=== PATIENT | female | born 1930 | race Two or more races ===

== ENCOUNTER 2018-05-23 13:26 | Observation (INO) | payer MEDICARE, BC ==
[2018-05-23] MEDS ORDERED: ONDANSETRON 4 MG/2 ML VIAL IVP STA (14:51)
[2018-05-23] MEDS ORDERED: MORPHINE SULFATE 2 MG/ML SYRINGE IVP STA (14:51)
[2018-05-23] MEDS ORDERED: SODIUM CHLORIDE 0.9% 500 ML 500 ML IV ONE (14:51)
[2018-05-23 15:27] LABS: Amorphous Sediment,Urine Rare /hpf; Appearance,Urine Cloudy (Clear); Bacteria,Urine Occasional /hpf; Bilirubin,Urine Negative (Negative); Blood,Urine Negative (Negative); Color,Urine Light Yellow; Glucose,Urine (UA) Negative (Negative); Ketones,Urine Negative (Negative); Leukocyte Esterase,Urine Negative (Negative); Mucus,Urine Rare /hpf; Nitrite,Urine Positive (Negative); PH, Urine 7.5 (5.0-8.0); Protein,Urine 1+ (Negative); Specific Gravity,Urine 1.011 (1.001-1.035); Squamous Epithelial Cell,Urine <1 /hpf (0-4); Urobilinogen,Urine <2.0 mg/dL (<2.0); WBC,Urine 13 /hpf (0-5)
[2018-05-23 15:31] LABS: Basophils % (A) 0 %; Eosinophils # (A) 0.2 k/uL (0-0.7); Eosinophils % (A) 3 %; HCT 40.3 % (34.0-46.0); HGB 12.4 gm/dL (11.4-16.0); INR 0.9 (<1.2); Lymphocytes # (A) 1.5 k/uL (1.0-4.8); Lymphocytes % (A) 20 %; MCH 28.6 pg (25.0-35.0); MCHC 30.9 g/dL (31.0-37.0); MCV 92.5 fL (80.0-100.0); Mean Platelet Volume 7.7; Monocytes # (A) 0.6 k/uL (0-1.0); Monocytes % (A) 8 %; Neutrophils # (A) 4.7 k/uL (1.3-7.7); Neutrophils % (A) 65 %; Partial Thromboplastin Time 23.1 sec (22.0-30.0); Platelet Count 223 k/uL (150-450); Prothrombin Time 10.1 sec (9.0-12.0); RBC 4.35 m/uL (3.80-5.40); RDW 13.5 % (11.5-15.5); WBC 7.2 k/uL (3.8-10.6)
[2018-05-23 15:32] LABS: ALT 21 U/L (9-52); AST 22 U/L (14-36); Albumin 3.9 g/dL (3.5-5.0); Alkaline Phosphatase 72 U/L (38-126); Anion Gap 7 mmol/L; Blood Urea Nitrogen 18 mg/dL (7-17); Calcium 9.6 mg/dL (8.4-10.2); Carbon Dioxide 28 mmol/L (22-30); Chloride 102 mmol/L (98-107); Glucose 99 mg/dL (74-99); Potassium 4.1 mmol/L (3.5-5.1); Sodium 137 mmol/L (137-145); Total Bilirubin 0.3 mg/dL (0.2-1.3); Total Protein 6.8 g/dL (6.3-8.2)
--- NOTE | 2018-05-23 15:46 | ED ---
General Adult HPI - General Chief complaint: Back Pain/Injury Stated complaint: Flank pain Time Seen by Provider: 05/23/18 14:17 Source: patient Mode of arrival: ambulatory Limitations: no limitations - History of Present Illness Initial comments: 88-year-old female patient presents to the emergency department today for evaluation of left flank pain. Patient states she has had the pain on and off for the last month. Over the last week the pain has worsened. Patient is visiting here from [place] and arrived a couple of days ago. Patient denies any shortness of breath with this. States she does have a chronic cough related to smoking cigarettes. She states that she is having some dysuria but denies any hematuria, urinary frequency, urinary urgency. She denies any fevers or chills with this. Patient denies any injury to the ribs or falls. Patient denies any recent rash, shortness breath, chest pain, abdominal pain, nausea, vomiting, diarrhea, constipation, numbness, tingling, dizziness, weakness, headache, visual changes, or any other complaints. - Related Data Home Medications Medication Instructions Recorded Confirmed Acetaminophen [Tylenol] 650 mg PO Q4H PRN 05/23/18 05/23/18 Aspirin [Adult Low Dose Aspirin EC] 81 mg PO QAM 05/23/18 05/23/18 Losartan Potassium 100 mg PO HS 05/23/18 05/23/18 Metoprolol Tartrate [Lopressor] 50 mg PO DAILY 05/23/18 05/23/18 Multivitamins, Thera [Multivitamin 1 tab PO QAM 05/23/18 05/23/18 (formulary)] Allergies Allergy/AdvReac Type Severity Reaction Status Date / Time No Known Allergies Allergy Verified 05/23/18 14:18 Review of Systems ROS Statement: Those systems with pertinent positive or pertinent negative responses have been documented in the HPI. ROS Other: All systems not noted in ROS Statement are negative. Past Medical History Past Medical History: CVA/TIA, Hypertension Additional Past Medical History / Comment(s): carotid athersclerosis History of Any Multi-Drug Resistant Organisms: None Reported Past Surgical History: No Surgical Hx Reported Past Psychological History: No Psychological Hx Reported Smoking Status: Current every day smoker Past Alcohol Use History: None Reported Past Drug Use History: None Reported - Past Family History Sister(s) Family Medical History: Cancer General Exam Limitations: no limitations General appearance: alert, in no apparent distress, other (This is a well- developed, well-nourished elderly female patient in mild distress related to pain. Vital signs upon presentation are temperature 98.2F, pulse 80, respirations 18, blood pressure 206/112, pulse ox 97% on room air.) Eye exam: Present: normal appearance, PERRL, EOMI. Absent: scleral icterus, conjunctival injection, periorbital swelling ENT exam: Present: normal exam, normal oropharynx, mucous membranes moist Respiratory exam: Present: normal lung sounds bilaterally. Absent: respiratory distress, wheezes, rales, rhonchi, stridor Cardiovascular Exam: Present: regular rate, normal rhythm, normal heart sounds. Absent: systolic murmur, diastolic murmur, rubs, gallop, clicks GI/Abdominal exam: Present: soft, normal bowel sounds. Absent: distended, tenderness, guarding, rebound, rigid Neurological exam: Present: alert, oriented X3, CN II-XII intact Psychiatric exam: Present: normal affect, normal mood Skin exam: Present: warm, dry, intact, normal color. Absent: rash Course Vital Signs 05/23/18 05/23/18 05/23/18 13:46 16:06 17:43 Temperature 98.2 F 97.8 F Pulse Rate 80 79 83 Respiratory 18 18 20 Rate Blood Pressure 206/112 179/95 182/68 O2 Sat by Pulse 97 95 99 Oximetry EKG Findings - EKG Comments: EKG Findings:: EKG obtained at 1516 shows normal sinus rhythm with ventricular rate of 71, OH interval 146, QRS duration 72, QT 414, QTC 449. No evidence of ST elevation or depression. Medical Decision Making - Medical Decision Making 88-year-old female patient presented to the emergency department today for evaluation of left sided upper back pain, near the left flank. Patient reported symptoms for the last month however worsening over the last week. Physical examination was relatively unremarkable. Pain was not reproducible with palpation. Lungs are clear to auscultation with good air movement. Abdomen soft and nontender. Patient did have urinalysis positive for urinary tract infection. She was given dose of Rocephin here in the emergency department. Given severity of patient's pain felt it prudent to perform CT abdomen and pelvis to rule out further etiology, there was evidence of small pericardial effusion. Given patient's location of pain there is a possibility this could be related however is unlikely. We will admit patient for echocardiogram and consultation with cardiology. Did discuss findings, results , and plan with patient and the family, they are agreeable. - Lab Data Result diagrams: 05/23/18 14:55 05/23/18 14:55 Lab Results 05/23/18 05/23/18 05/23/18 Range/Units 14:53 14:55 14:55 WBC 7.2 (3.8-10.6) k/uL RBC 4.35 (3.80-5.40) m/uL Hgb 12.4 (11.4-16.0) gm/dL Hct 40.3 (34.0-46.0) % MCV 92.5 (80.0-100.0) fL MCH 28.6 (25.0-35.0) pg MCHC 30.9 L (31.0-37.0) g/dL RDW 13.5 (11.5-15.5) % Plt Count 223 (150-450) k/uL Neutrophils % 65 % Lymphocytes % 20 % Monocytes % 8 % Eosinophils % 3 % Basophils % 0 % Neutrophils # 4.7 (1.3-7.7) k/uL Lymphocytes # 1.5 (1.0-4.8) k/uL Monocytes # 0.6 (0-1.0) k/uL Eosinophils # 0.2 (0-0.7) k/uL Basophils # 0.0 (0-0.2) k/uL PT (9.0-12.0) sec INR (<1.2) APTT (22.0-30.0) sec Sodium 137 (137-145) mmol/L Potassium 4.1 (3.5-5.1) mmol/L Chloride 102 (98-107) mmol/L Carbon Dioxide 28 (22-30) mmol/L Anion Gap 7 mmol/L BUN 18 H (7-17) mg/dL Creatinine 0.60 (0.52-1.04) mg/dL Est GFR (CKD-EPI)AfAm >90 (>60 ml/min/1.73 sqM) Est GFR (CKD-EPI)NonAf 83 (>60 ml/min/1.73 sqM) Glucose 99 (74-99) mg/dL Calcium 9.6 (8.4-10.2) mg/dL Total Bilirubin 0.3 (0.2-1.3) mg/dL AST 22 (14-36) U/L ALT 21 (9-52) U/L Alkaline Phosphatase 72 (38-126) U/L Troponin I (0.000-0.034) ng/mL Total Protein 6.8 (6.3-8.2) g/dL Albumin 3.9 (3.5-5.0) g/dL Urine Color Light Yellow Urine Appearance Cloudy H (Clear) Urine pH 7.5 (5.0-8.0) Ur Specific Nelson 1.011 (1.001-1.035) Urine Protein 1+ H (Negative) Urine Glucose (UA) Negative (Negative) Urine Ketones Negative (Negative) Urine Blood Negative (Negative) Urine Nitrite Positive H (Negative) Urine Bilirubin Negative (Negative) Urine Urobilinogen <2.0 (<2.0) mg/dL Ur Leukocyte Esterase Negative (Negative) Urine WBC 13 H (0-5) /hpf Ur Squamous Epith Cells <1 (0-4) /hpf Amorphous Sediment Rare H (None) /hpf Urine Bacteria Occasional H (None) /hpf Urine Mucus Rare H (None) /hpf 05/23/18 05/23/18 Range/Units 14:55 14:55 WBC (3.8-10.6) k/uL RBC (3.80-5.40) m/uL Hgb (11.4-16.0) gm/dL Hct (34.0-46.0) % MCV (80.0-100.0) fL MCH (25.0-35.0) pg MCHC (31.0-37.0) g/dL RDW (11.5-15.5) % Plt Count (150-450) k/uL Neutrophils % % Lymphocytes % % Monocytes % % Eosinophils % % Basophils % % Neutrophils # (1.3-7.7) k/uL Lymphocytes # (1.0-4.8) k/uL Monocytes # (0-1.0) k/uL Eosinophils # (0-0.7) k/uL Basophils # (0-0.2) k/uL PT 10.1 (9.0-12.0) sec INR 0.9 (<1.2) APTT 23.1 (22.0-30.0) sec Sodium (137-145) mmol/L Potassium (3.5-5.1) mmol/L Chloride (98-107) mmol/L Carbon Dioxide (22-30) mmol/L Anion Gap mmol/L BUN (7-17) mg/dL Creatinine (0.52-1.04) mg/dL Est GFR (CKD-EPI)AfAm (>60 ml/min/1.73 sqM) Est GFR (CKD-EPI)NonAf (>60 ml/min/1.73 sqM) Glucose (74-99) mg/dL Calcium (8.4-10.2) mg/dL Total Bilirubin (0.2-1.3) mg/dL AST (14-36) U/L ALT (9-52) U/L Alkaline Phosphatase (38-126) U/L Troponin I <0.012 (0.000-0.034) ng/mL Total Protein (6.3-8.2) g/dL Albumin (3.5-5.0) g/dL Urine Color Urine Appearance (Clear) Urine pH (5.0-8.0) Ur Specific Nelson (1.001-1.035) Urine Protein (Negative) Urine Glucose (UA) (Negative) Urine Ketones (Negative) Urine Blood (Negative) Urine Nitrite (Negative) Urine Bilirubin (Negative) Urine Urobilinogen (<2.0) mg/dL Ur Leukocyte Esterase (Negative) Urine WBC (0-5) /hpf Ur Squamous Epith Cells (0-4) /hpf Amorphous Sediment (None) /hpf Urine Bacteria (None) /hpf Urine Mucus (None) /hpf - Radiology Data Radiology results: report reviewed, image reviewed Two-view x-ray of the chest is obtained. Report was reviewed in its entirety. Impression by Dr. Padron shows no active cardiopulmonary disease. Mild pulmonary fibrosis Two-view x-ray of the left ribs are obtained. Report was reviewed in its entirety. Impression by Dr. Padron shows negative left rib exam. No fracture seen. CT abdomen and pelvis with contrast was obtained. Report was reviewed in its entirety. Impression by Dr. Padron shows extensive colonic diverticulosis without diverticulitis. Atherosclerotic vascular disease. Mild dilation of the pancreatic duct in the common bile duct. No obstructing mass seen. Clinical significance is not clear. Also noted was a small pericardial effusion. Disposition Clinical Impression: Pericardial effusion Disposition: ADMITTED IP TO THIS HOSP Condition: Serious Decision to Admit Reason: Admit from EC Decision Date: 05/23/18 Decision Time: 17:34
--- NOTE | 2018-05-23 16:22 | XR ---
EXAMINATION TYPE: XR chest 2V DATE OF EXAM: 05/23/2018 COMPARISON: NONE HISTORY: Left-sided rib pain TECHNIQUE: Frontal and lateral views of the chest are obtained. FINDINGS: Heart is slightly enlarged. There is no heart failure. There is slight coarsening of inter stitial markings. There is no pleural effusion. There is spurring in the thoracic spine. Thoracic aor ta is atheromatous. IMPRESSION: No active cardiopulmonary disease. Mild pulmonary fibrosis.
--- NOTE | 2018-05-23 16:23 | XR ---
EXAMINATION TYPE: XR ribs LT DATE OF EXAM: 05/23/2018 COMPARISON: NONE HISTORY: Left flank pain. Cough. TECHNIQUE: 2 views FINDINGS: I see no pleural effusion or pneumothorax. Left lung is clear of infiltrate. There is osteo penia. I see no rib fracture. IMPRESSION: Negative left rib exam. No fracture seen.
--- NOTE | 2018-05-23 17:01 | CT ---
EXAMINATION TYPE: CT abdomen pelvis w con DATE OF EXAM: 05/23/2018 COMPARISON: None HISTORY: Chest pain CT DLP: mGycm Automated exposure control for dose reduction was used. TECHNIQUE: Helical acquisition of images was performed from the lung bases through the pelvis. CONTRAST: The contrast was Isovue 90 mL. FINDINGS: Lung bases are clear of consolidation. There is no pleural effusion. There is calcified splenic granu fouzia. There is small pericardial effusion. Stomach appears normal. Gallbladder appears normal. There is slight prominence of the bile ducts. The common bile duct measures 9 mm. There is no pancreatic ma ss. There is mild ectasia of the distal pancreatic duct that measures 6.5 mm. There is no adrenal mass. Kidneys show satisfactory contrast opacification. There is no hydronephrosi s. Ureters are not dilated. There is no retroperitoneal adenopathy. Abdominal aorta is atheromatous. Bladder distends smoothly. There is no free fluid in the pelvis. There are multiple sigmoid diverticu la. There are multiple diverticula in the descending colon. There is no inguinal hernia. There is no mesenteric edema or adenopathy. IMPRESSION: EXTENSIVE COLONIC DIVERTICULOSIS WITHOUT DIVERTICULITIS. ATHEROSCLEROTIC VASCULAR DISEASE. MILD DILATION OF THE PANCREATIC DUCT AND THE COMMON BILE DUCT. NO OBSTRUCTING MASS SEEN. THE CLINICAL SIGNIFICANCE IS NOT CLEAR.
[2018-05-23] MEDS ORDERED: NALOXONE 0.4 MG/ML 1 ML VIAL IV PRN (17:30)
[2018-05-23] MEDS ORDERED: ONDANSETRON 4 MG/2 ML VIAL IVP PRN (17:30)
[2018-05-23] MEDS ORDERED: MORPHINE SULFATE 2 MG/ML SYRINGE IV PRN (17:30)
[2018-05-23] MEDS ORDERED: ACETAMINOPHEN TAB 325 MG TAB PO PRN (18:47)
[2018-05-23] MEDS ORDERED: LOSARTAN 50 MG TAB PO SCH (21:00)
--- NOTE | 2018-05-23 23:13 | HP ---
HISTORY AND PHYSICAL DATE OF SERVICE: 05/23/2018. CHIEF COMPLAINT: Left lateral chest pain for "months." HISTORY OF PRESENT ILLNESS: This is the first admission for this 88-year-old white female. She has been having left-sided rib or chest pain for several months. She has had no fever, chills, history of trauma, hemoptysis, sputum production, shortness of breath, etc. She came to the emergency room where a full workup was obtained and no abnormality was seen except for a pericardial effusion. She had no rib fracture. The reasons for having pericardial effusion are obscure. She is healthy otherwise. REVIEW OF SYSTEMS: She has had no CVAs, neurologic problems, difficulty with vision or hearing, heart disease, palpitations, murmurs, rheumatic fever, myocardial infarctions, angina, etc. Her medications suggest that she may have had cardiac problems and/or hypertension. She has had no abdominal pain, nausea, vomiting, food intolerance, melena, hematochezia, hematemesis, jaundice, hepatitis, cirrhosis, hematuria, frequency, urgency, arthralgias, diabetes, etc. PAST MEDICAL HISTORY, FAMILY HISTORY, PERSONAL, SOCIAL HISTORY: Otherwise unremarkable. She has had 2 pregnancies and 2 children. She is not allergic to any medication and she denies surgery. She states she is not on any medication, but she is on Tylenol, aspirin, losartan, metoprolol, and vitamin. Family history, personal history, social histories are otherwise unremarkable and noncontributory. She does smoke a pack of cigarettes a day. PHYSICAL EXAMINATION: Blood pressure is 206/112 with a pulse of 86, she is afebrile. In general, she appeared to be slender, well developed, well preserved for age. Skin color is normal skin is warm, dry. Lymph nodes not enlarged. Head, ears, eyes, nose, mouth, and throat were normal. Neck veins not distended. Thyroid is not enlarged. Carotids normal. Chest is clear. Cardiac exam demonstrates what sounds like sinus rhythm with no murmurs or extra sounds. Abdomen is soft, flat, nontender. No masses or visceromegaly. Bowel sounds are present. Extremities are normal. Neurologically she is intact. DIAGNOSES: 1. Left lateral chest wall pain for several months, etiology unknown. 2. Possible pericardial effusion. 3. Hypertension. PLAN: 1. Bedrest. 2. IV fluids. 3. Echocardiogram. 4. Cardiology consult. MMODL / IJN: [id number] /
[2018-05-24 08:27] VITALS: RESP 18; TEMP 97
[2018-05-24] MEDS ORDERED: ASPIRIN 81 MG PO SCH (09:00)
[2018-05-24] MEDS ORDERED: METOPROLOL TARTRATE 50 MG TAB PO SCH (09:00)
[2018-05-24] MEDS ORDERED: MULTIVITAMINS, THERA 1 EACH TAB PO SCH (09:00)
--- NOTE | 2018-05-24 11:53 | ECHOF ---
Referral Reason:Pericardial effusion MEASUREMENTS -------- HEIGHT: 147.3 cm WEIGHT: 44.9 kg BP: 161/71 IVSd: 1.2 cm (0.6 - 1.1) LVIDd: 4.0 cm (3.9 - 5.3) LVPWd: 1.1 cm (0.6 - 1.1) EDV(Teich): 70 ml IVSs: 1.6 cm LVIDs: 2.8 cm LVPWs: 1.7 cm %IVS Thck: 27 % ESV(Teich): 30 ml EF(Teich): 58 % %FS: 30 % SV(Teich): 40 ml LA Diam: 3.1 cm (2.7 - 3.8) RVIDd: 2.5 cm (< 3.3) LALs A4C: 4.9 cm LAAs A4C: 15.9 cm LAESV A-L A4C: 44 ml LAESV MOD A4C: 42 ml LALs A2C: 5.2 cm LAAs A2C: 13.3 cm LAESV A-L A2C: 29 ml LAESV MOD A2C: 28 ml LAESV(A-L): 37 ml LAESV Index (A-L): 27.20 ml/m Ao Diam: 3.2 cm (2.0 - 3.7) AV Cusp: 1.8 cm (1.5 - 2.6) EPSS: 0.6 cm MV E Josef: 1.20 m/s MV DecT: 219 ms MV Dec Broome: 5.5 m/s MV A Josef: 1.35 m/s MV E/A Ratio: 0.89 MV PHT: 63 ms AV Vmax: 1.57 m/s AV maxP.86 mmHg TR Vmax: 3.07 m/s TR maxP.65 mmHg RAP: 5.00 mmHg RVSP: 42.65 mmHg MV EF SLOPE: 57.60 mm/s (70 - 150) MV EXCURSION: 14.58 mm (> 18.000) FINDINGS -------- Sinus rhythm. This was a technically good study. The left ventricular size is normal. There is borderline concentric left ventricular hypertrophy. Overall left ventricular systolic function is normal with, an EF between 60 - 65 %. The right ventricle is normal in size. Normal LA size by volume 22+/-6 ml/m2. The right atrium is normal in size. There is mild aortic valve sclerosis. The mitral valve leaflets are mildly thickened. Mild mitral annular calcification present. Mild m itral regurgitation is present. Mild tricuspid regurgitation present. There is mild pulmonary hypertension. The right ventricular systolic pressure, as measured by Doppler, is 42.65mmHg. Trace/mild (physiologic) pulmonic regurgitation. The aortic root size is normal. Normal inferior vena cava with normal inspiratory collapse consistent with estimated right atrial pre ssure of 5 mmHg. There is a trivial pericardial effusion present. CONCLUSIONS -------- 1. Sinus rhythm. 2. This was a technically good study. 3. The left ventricular size is normal. 4. There is borderline concentric left ventricular hypertrophy. 5. Overall left ventricular systolic function is normal with, an EF between 60 - 65 %. 6. The right ventricle is normal in size. 7. Normal LA size by volume 22+/-6 ml/m2. 8. The right atrium is normal in size. 9. There is mild aortic valve sclerosis. 10. The mitral valve leaflets are mildly thickened. 11. Mild mitral annular calcification present. 12. Mild mitral regurgitation is present. 13. Mild tricuspid regurgitation present. 14. There is mild pulmonary hypertension. 15. The right ventricular systolic pressure, as measured by Doppler, is 42.65mmHg. 16. Trace/mild (physiologic) pulmonic regurgitation. 17. The aortic root size is normal. 18. Normal inferior vena cava with normal inspiratory collapse consistent with estimated right atrial pressure of 5 mmHg. 19. There is a trivial pericardial effusion present. SENIOR ASIC ENGINEER: Elvira Layne RDCS
--- NOTE | 2018-05-24 12:01 | P.CRDCN ---
History of Present Illness Consult date: 05/24/18 History of present illness: This is a 88-year-old female who came to the hospital with complaints of back pain mostly on the left side in the lower rib cage near the axilla. It's very is circumscribed and intermittent in nature. Sometimes aggravated by deep breathing and movements of the chest. It lasts several minutes and then subsides. Denies any nausea, vomiting or shortness of breath. Patient is a smoker and has some chronic wheezing. Rib x-rays did not reveal any fractures. Chest x-ray did not reveal any acute pathology. Computed tomography scan was suggestive of possible pericardial effusion. Patient is admitted here for further evaluation to make sure that these pains are not related to any pericardial issues. Echocardiogram showed trivial effusion. Otherwise LV function appears to be normal. Her chest pains appear to be noncardiac and muscular skeletal. [facility] Follow-up with primary care physician. Review of Systems As per the chart Past Medical History Past Medical History: CVA/TIA, Hypertension Additional Past Medical History / Comment(s): carotid athersclerosis History of Any Multi-Drug Resistant Organisms: None Reported Past Surgical History: No Surgical Hx Reported Past Anesthesia/Blood Transfusion Reactions: No Reported Reaction Past Psychological History: No Psychological Hx Reported Smoking Status: Current every day smoker Past Alcohol Use History: None Reported Past Drug Use History: None Reported - Past Family History Sister(s) Family Medical History: Cancer Medications and Allergies Home Medications Medication Instructions Recorded Confirmed Type Acetaminophen [Tylenol] 650 mg PO Q4H PRN 05/23/18 05/23/18 History Aspirin [Adult Low Dose Aspirin EC] 81 mg PO QAM 05/23/18 05/23/18 History Losartan Potassium 100 mg PO HS 05/23/18 05/23/18 History Metoprolol Tartrate [Lopressor] 50 mg PO DAILY 05/23/18 05/23/18 History Multivitamins, Thera [Multivitamin 1 tab PO QAM 05/23/18 05/23/18 History (formulary)] Allergies Allergy/AdvReac Type Severity Reaction Status Date / Time No Known Allergies Allergy Verified 05/23/18 14:18 Physical Exam Vitals: Vital Signs Temp Pulse Pulse Resp BP BP Pulse Ox 05/24/18 08:27 70 18 05/24/18 08:26 97.0 F L 70 18 147/60 95 05/24/18 04:00 97.6 F 78 20 161/71 94 L 05/24/18 00:00 97.2 F L 77 18 146/77 92 L 05/23/18 20:00 97.3 F L 81 18 185/102 92 L 05/23/18 19:11 97.9 F 75 20 146/77 93 L 05/23/18 17:43 97.8 F 83 20 182/68 99 05/23/18 16:06 79 18 179/95 95 05/23/18 13:46 98.2 F 80 18 206/112 97 Intake and Output 05/23/18 05/24/18 05/24/18 22:59 06:59 14:59 Intake Total 240 Balance 240 Intake: Oral 240 Other: Voiding Method Toilet Toilet Toilet Incontinent Incontinent # Voids 2 1 Weight 45 kg GENERAL EXAM: Patient is alert and oriented and doesn't appear to be in any acute distress HEENT: Normocephalic. Normal reaction of pupils, equal size, normal range of extraocular motion. No erythema or exudates in the throat. NECK: No masses, no nuchal rigidity. CHEST: No chest wall deformity. LUNGS: Expiratory wheezes HEART: S1 and S2 normal with no audible mumurs or gallops. Regular rhythm, femorals equal on both sides.. ABDOMEN: No hepatosplenomegaly, normal bowel sounds, no guarding or rigidity. SKIN: No rashes CENTRAL NERVOUS SYSTEM: No focal deficits. EXTREMITIES: No cyanosis, clubbing or edema. Results 05/23/18 14:55 05/23/18 14:55 Cardiac Enzymes 05/23/18 05/23/18 Range/Units 14:55 14:55 AST 22 (14-36) U/L Troponin I <0.012 (0.000-0.034) ng/mL Coagulation 05/23/18 Range/Units 14:55 PT 10.1 (9.0-12.0) sec APTT 23.1 (22.0-30.0) sec CBC 05/23/18 Range/Units 14:55 WBC 7.2 (3.8-10.6) k/uL RBC 4.35 (3.80-5.40) m/uL Hgb 12.4 (11.4-16.0) gm/dL Hct 40.3 (34.0-46.0) % Plt Count 223 (150-450) k/uL Comprehensive Metabolic Panel 05/23/18 Range/Units 14:55 Sodium 137 (137-145) mmol/L Potassium 4.1 (3.5-5.1) mmol/L Chloride 102 (98-107) mmol/L Carbon Dioxide 28 (22-30) mmol/L BUN 18 H (7-17) mg/dL Creatinine 0.60 (0.52-1.04) mg/dL Glucose 99 (74-99) mg/dL Calcium 9.6 (8.4-10.2) mg/dL AST 22 (14-36) U/L ALT 21 (9-52) U/L Alkaline Phosphatase 72 (38-126) U/L Total Protein 6.8 (6.3-8.2) g/dL Albumin 3.9 (3.5-5.0) g/dL Current Medications Generic Name Dose Route Start Last Admin Trade Name Freq PRN Reason Stop Dose Admin Acetaminophen 650 mg 05/23/18 18:47 05/24/18 04:15 Tylenol Tab PO 650 mg Q4H PRN Administration Pain Aspirin 81 mg 05/24/18 09:00 05/24/18 08:21 Aspirin PO 81 mg QAM REAGAN Administration Ceftriaxone Sodium 1,000 mg/ 50 mls @ 100 mls/hr 05/24/18 09:00 05/24/18 08: 22 Sodium Chloride IVPB 100 mls/hr Q24HR REAGAN Administration Losartan Potassium 100 mg 05/23/18 21:00 05/23/18 22:19 Cozaar PO 100 mg HS REAGAN Administration Metoprolol Tartrate 50 mg 05/24/18 09:00 05/24/18 08:21 Lopressor PO 50 mg DAILY REAGAN Administration Morphine Sulfate 2 mg 05/23/18 17:30 Morphine Sulfate (Inj) IV Q4HR PRN Severe Pain Multivitamins 1 each 05/24/18 09:00 05/24/18 08:21 Theragran PO 1 each QAM REAGAN Administration Naloxone HCl 0.2 mg 05/23/18 17:30 Narcan IV Q2M PRN Opioid Reversal Ondansetron HCl 4 mg 05/23/18 17:30 Zofran IVP Q8HR PRN Nausea And Vomiting Intake and Output 05/23/18 05/24/18 05/24/18 22:59 06:59 14:59 Intake Total 240 Balance 240 Intake: Oral 240 Other: Voiding Method Toilet Toilet Toilet Incontinent Incontinent # Voids 2 1 Weight 45 kg 05/23/18 14:55 05/23/18 14:55 Assessment and Plan (1) Back pain Current Visit: Yes Status: Acute Code(s): M54.9 - DORSALGIA, UNSPECIFIED SNOMED Code(s): 628300054 (2) COPD (chronic obstructive pulmonary disease) Current Visit: Yes Status: Acute Code(s): J44.9 - CHRONIC OBSTRUCTIVE PULMONARY DISEASE, UNSPECIFIED SNOMED Code(s): 51474800 Plan: Her back pain appears to be very localized and on cardiac in nature. Echocardiogram showed only trivial pericardial effusion. LV function is preserved. Patient to have EKG. If that is normal patient could be discharged home
[2018-05-24 12:03] VITALS: BP 158/84; PULSE 78
[2018-05-24] MEDS ORDERED: SULFAMETHOX-TMP 800-160MG 1 EACH TAB PO SCH (21:00)
--- NOTE | 2018-05-25 08:30 | DS ---
DISCHARGE SUMMARY CHIEF COMPLAINT: Possible pericardial effusion. HISTORY OF PRESENT ILLNESS AND PHYSICAL EXAM: Details of this lady's history and physical can be found in the initial workup. LABORATORY STUDIES: While she was in a hospital she had laboratory studies, details of which can be found in the laboratory section of her chart. COURSE IN HOSPITAL: After admission she was placed on bedrest, started his fluids and monitored closely for any cardiac signs or symptoms. She was seen by Cardiology and echocardiogram was done and demonstrated essentially no pericardial effusion. She is asymptomatic and felt that she could go home. She will go home on her usual activity and diet and medication and follow up in the office. FINAL DIAGNOSES: 1. Possible minimal pericardial effusion. 2. Hypertension. OPERATIONS: None. CONSULTATION: Cardiology. She is improved. MMODL / IJN: [id number] /
== END 2018-05-24 15:51 | disposition home or self-care (01) ==
LOC: EC 13:26 → 3SCARD 18:41
PROVIDERS: ADMIT Family Medicine; ATTEND Family Medicine
DX: R07.89 Other chest pain (principal); N39.0 Urinary tract infection, site not specified; F17.210 Nicotine dependence, cigarettes, uncomplicated; M54.9 Dorsalgia, unspecified; K57.30 Diverticulosis of large intestine without perforation or abscess without bleeding; I10 Essential (primary) hypertension; I70.90 Unspecified atherosclerosis; J44.9 Chronic obstructive pulmonary disease, unspecified; Z86.73 Personal history of transient ischemic attack (TIA), and cerebral infarction without residual deficits; Z79.82 Long term (current) use of aspirin; Z79.899 Other long term (current) drug therapy
CPT/HCPCS: 96366; 96365; 96375; 99285; 36415; 93005; 93306; 80053; 84484; 85025; 85610; 85730; 81001; 71100; 71046; 74177; G0378 ×2; J2405; J0696 ×2; J2270; Q9967